=== PATIENT | female | born 1945 | race Caucasian/White ===

== ENCOUNTER 2018-05-31 19:55 | Emergency (ER) | payer MEDICARE, OTHER ==
[~2018-05-31] VITALS: Ht 157.5 cm; Wt 72.6 kg
[2018-05-31 20:10] VITALS: BP 173/74
[2018-05-31] MEDS ORDERED: Simethicone 80mg tab ORAL ONE (20:30)
[2018-05-31] MEDS ORDERED: Dicyclomine HCl 10mg/5ml oral soln ORAL ONE (20:30)
[2018-05-31] MEDS ORDERED: Lidocaine 2% Visc 15ml soln ORAL ONE (20:30)
[2018-05-31] MEDS ORDERED: Mylanta II UD 30ml ORAL ONE (20:30)
[2018-05-31 20:49] LABS: APPEARANCE,URINE CLEAR; BILIRUBIN, URINE NEGATIVE (NEGATIVE); COLOR,URINE PALE YELLOW; GLUCOSE, URINE (UA) NEGATIVE (NEGATIVE); KETONES,URINE NEGATIVE (NEGATIVE); LEUKOCYTE ESTERASE ,URINE NEGATIVE (NEGATIVE); NITRITE,URINE NEGATIVE (NEGATIVE); PH,URINE 7 (4.5-8.0); PROTEIN,URINE NEGATIVE (NEGATIVE); UROBILINOGEN,URINE NORMAL MG/DL (0.0-1.0)
[2018-05-31 20:49] LABS: EOSINOPHILS % (AUTO) 4.1 % (0.0-3.0); HEMATOCRIT 31.2 % (37.0-47.0); HEMOGLOBIN 9.9 G/DL (12.0-16.0); LYMPHOCYTES % (AUTO) 36.6 % (20.0-45.0); MEAN CORPUSCULAR VOLUME 79 FL (80-99); MONOCYTES % (AUTO) 10.6 % (1.0-10.0); NEUTROPHILS % (AUTO) 46.7 % (45.0-75.0); PLATELET COUNT 307 K/UL (150-450); RED BLOOD COUNT 3.96 M/UL (4.20-5.40); RED CELL DISTRIBUTION WIDTH 15.7 % (11.6-14.8); WHITE BLOOD COUNT 7.4 K/UL (4.8-10.8)
--- NOTE | 2018-05-31 21:03 | Emergency Room Report ---
History of Present Illness General Chief Complaint: Abdominal Pain Source: Patient (Jordi Gonzáles MD) Present Illness HPI 72-year-old female presents ED complaining of abdominal pain. Started earlier today. Cramping, 8 out of 10, lower abdomen, nonradiating. Noted a large bowel movement earlier. Denies any nausea or vomiting. Denies any diarrhea. States she feels bloated and distended. States she has history of gastritis in the past but states pain is worse today. No other aggravating relieving factors. Denies any other associated symptoms (Jordi Gonzáles MD) Allergies: Coded Allergies: No Known Allergies (Unverified , 05/31/18) Patient History Past Medical History: GERD Past Surgical History: none Pertinent Family History: none Social History: Denies: smoking, alcohol use, drug use Last Menstrual Period: n/a Now: No Immunizations: UTD Reviewed Nursing Documentation: PMH: Agreed; PSxH: Agreed (Jordi Gonzáles MD) Nursing Documentation-PMH Past Medical History: No History, Except For Hx Hypertension: Yes Hx Gastrointestinal Problems: Yes - gastritis (Jordi Gonzáles MD) Review of Systems All Other Systems: negative except mentioned in HPI (Jordi Gonzáles MD) Physical Exam Vital Signs Date Time Temp Pulse Resp B/P (MAP) Pulse Ox O2 Delivery O2 Flow Rate FiO2 05/31/18 19:59 98.2 75 16 176/81 98 Room Air 98.2 Sp02 EP Interpretation: reviewed, normal General Appearance: no apparent distress, alert, GCS 15, non-toxic Head: normocephalic, atraumatic Eyes: bilateral eye normal inspection, bilateral eye PERRL ENT: hearing grossly normal, normal pharynx, no angioedema, normal voice Neck: full range of motion, supple/symm/no masses Respiratory: chest non-tender, lungs clear, normal breath sounds, speaking full sentences Cardiovascular #1: regular rate, rhythm, no edema Cardiovascular #2: 2+ carotid (R), 2+ carotid (L), 2+ radial (R), 2+ radial (L) , 2+ dorsalis pedis (R), 2+ dorsalis pedis (L) Gastrointestinal: normal bowel sounds, soft, no guarding, no rebound, distended , tenderness - suprapubic Rectal: deferred Genitourinary: normal inspection, no CVA tenderness Musculoskeletal: back normal, gait/station normal, normal range of motion, non- tender Neurologic: alert, oriented x3, responsive, motor strength/tone normal, sensory intact, speech normal Psychiatric: judgement/insight normal, memory normal, mood/affect normal, no suicidal/homicidal ideation Reflexes: 3+ bicep (R), 3+ bicep (L), 3+ tricep (R), 3+ tricep (L), 3+ knee (R) , 3+ knee (L) Skin: normal color, no rash, warm/dry, well hydrated Lymphatic: no adenopathy (Jordi Gonzáles MD) Medical Decision Making Diagnostic Impression: Primary Impression: Abdominal pain Qualified Codes: R10.32 - Left lower quadrant pain Additional Impression: Anemia Qualified Codes: D64.9 - Anemia, unspecified ER Course Patient signout to me. She presents with left lower quadrant abdominal pain that's been ongoing off for about a year. Worse tonight. Labs unremarkable. CT scan showed degenerative changes. She has diverticulosis but no evidence of acute diverticulitis. She felt better now. She is anemic on blood work. She has not had a colonoscopy over 10 years. She may benefit from a screening colonoscopy. No evidence of an acute abdomen. No evidence of infection. We' ll discharge home. (LOPEZ CORDERO M.D.) CT/MRI/US Diagnostic Results CT/MRI/US Diagnostic Results : Imaging Test Ordered: CT abdomen and pelvis Impression Read by radiologist. Negative. (LOPEZ CORDERO M.D.) Last Vital Signs Date Time Temp Pulse Resp B/P (MAP) Pulse Ox O2 Delivery O2 Flow Rate FiO2 05/31/18 20:10 98.3 73 19 173/74 99 Room Air 98.3 (Jordi Gonzáles MD) Status: improved (LOPEZ CORDERO M.D.) Disposition: HOME, SELF-CARE Condition: Stable Scripts Acetaminophen With Codeine (T#3) (TYLENOL #3 TAB*) Y Tab 1 TAB ORAL Q8H PRN for For Pain, #20 TAB Prov: LOPEZ CORDERO M.D. 05/31/18 Referrals: NOT CHOSEN IPA/,REFERRING (PCP) Patient Instructions: Abdominal Pain, Adult Additional Instructions: Follow-up your doctor in 7 days. You may benefit from a screening colonoscopy since you have had one in over 10 years. Return if symptom worsen. Jordi Gonzáles MD May 31, 2018 21:03 LOPEZ CORDERO M.D. May 31, 2018 22:09
[2018-05-31 21:04] LABS: ANION GAP 9 mmol/L (5-15); BLOOD UREA NITROGEN 11 mg/dL (7-18); CALCIUM 8.7 MG/DL (8.5-10.1); CARBON DIOXIDE 26 MMOL/L (21-32); CHLORIDE 107 MMOL/L (98-107); POTASSIUM 4.3 MMOL/L (3.5-5.1); SODIUM 142 MMOL/L (136-145)
[2018-05-31 21:09] LABS: ALANINE AMINOTRANSFERASE 21 U/L (12-78); ALBUMIN 3.1 G/DL (3.4-5.0); ALBUMIN/GLOBULIN RATIO 0.7 (1.0-2.7); ALKALINE PHOSPHATASE 81 U/L (46-116); ASPARTATE AMINO TRANSFERASE 28 U/L (15-37); BILIRUBIN,TOTAL 0.4 MG/DL (0.2-1.0)
[2018-05-31] MEDS ORDERED: ACETAMINOPHEN-1 EAC1 ORAL (22:08)
[2018-05-31 22:21] VITALS: BP 154/68
[2018-05-31 22:22] VITALS: BP 154/68
--- NOTE | 2018-06-01 09:46 | Diagnostic Imaging Report ---
Indication: Abdominal pain Technique: Spiral acquisitions obtained through the abdomen and pelvis. No oral contrast utilized, per emergency room physician request No IV contrast utilized, per referring physician request.. Multiplanar reconstructions were generated. Total dose length product 907.51 mGycm. CTDIvol(s) 18.16 mGy. Dose reduction achieved using automated exposure control Comparison: None Findings: The appendix is not definitely demonstrated. No findings to suggest acute appendicitis are evident, however. There are multiple colonic diverticula. No evidence of diverticulitis. No free or loculated intraperitoneal air or fluid. No small bowel distention. Distal esophagus, stomach, duodenum are unremarkable. Lack of IV contrast limits assessment of the solid organs. The liver, gallbladder, bile ducts, pancreas are unremarkable. Spleen demonstrates numerous small calcifications. The adrenals are unremarkable. The right kidney demonstrates a 3.3 cm lower pole cyst. Left kidney demonstrates a tiny punctate nonobstructive calculus and a lower pole collecting system. No renal or ureteral calculi, hydronephrosis, or hydroureter. The bladder is unremarkable. The uterus is absent, presumably postsurgically. No pelvic mass or adenopathy. No retroperitoneal or mesenteric mass or adenopathy. The bones demonstrate mild degenerative lumbar spondylosis changes. The lung bases demonstrate bilateral parenchymal calcifications Impression: No acute abnormality Colonic diverticulosis. No evidence of diverticulitis Evidence of old granulomatous disease in the lungs and spleen 1 mm nonobstructive left lower pole intrarenal calyceal calculus Other findings as noted, including degenerative spondylosis, evidence of prior hysterectomy, right renal cyst This agrees with the preliminary interpretation provided overnight by [employer] teleradiology service. The CT scanner at [facility] is accredited by the [employer] and the scans are performed using protocols designed to limit radiation exposure to as low as reasonably achievable to attain images of sufficient resolution adequate for diagnostic evaluation.
== END 2018-05-31 22:40 | disposition home or self-care (01) ==
LOC: EMR 20:38
DX: R10.32 Left lower quadrant pain (principal); D64.9 Anemia, unspecified; I10 Essential (primary) hypertension; K57.30 Diverticulosis of large intestine without perforation or abscess without bleeding; N20.0 Calculus of kidney
CPT/HCPCS: 36415; 74176; 80053; 81003; 83690; 85025; 96361; 96374; 99284; S0028

== ENCOUNTER 2019-12-14 16:41 | Emergency (ER) | payer MEDICARE, OTHER ==
[~2019-12-14] VITALS: Ht 162.6 cm; Wt 76.7 kg
[~2019-12-14 16:41] MED LIST: ACETAMINOPHEN-1 EAC1 ORAL
[2019-12-14 17:10] VITALS: BP 170/90
--- NOTE | 2019-12-14 17:10 | NUR ---
ED Nurse Note: PT walked in to ED for c/o low abdominal sharp abdominal pain x multiple weeks. Pt verbalized feeling of fllness. denies N/V or fever or chills. PT also reports urinary freuency and urgency with dysuria
--- NOTE | 2019-12-14 17:36 | NUR ---
ED Nurse Note: blood sample sent down to lab
[2019-12-14 17:43] LABS: BASOPHILS % (AUTO) 0.7 % (0.0-2.0); EOSINOPHILS % (AUTO) 0.3 % (0.0-3.0); HEMATOCRIT 41.9 % (37.0-47.0); HEMOGLOBIN 12.9 G/DL (12.0-16.0); LYMPHOCYTES % (AUTO) 19.1 % (20.0-45.0); MEAN CORPUSCULAR VOLUME 96 FL (80-99); MONOCYTES % (AUTO) 9.7 % (1.0-10.0); NEUTROPHILS % (AUTO) 70.1 % (45.0-75.0); PLATELET COUNT 327 K/UL (150-450); RED BLOOD COUNT 4.39 M/UL (4.20-5.40); RED CELL DISTRIBUTION WIDTH 15.9 % (11.6-14.8); WHITE BLOOD COUNT 13.2 K/UL (4.8-10.8)
--- NOTE | 2019-12-14 17:43 | NUR ---
ED Nurse Note: Urine sent down to lab
[2019-12-14 17:58] LABS: ANION GAP 8 mmol/L (5-15); BLOOD UREA NITROGEN 18 mg/dL (7-18); CARBON DIOXIDE 28 MMOL/L (21-32); CHLORIDE 104 MMOL/L (98-107); CREATININE 0.7 MG/DL (0.55-1.30); SODIUM 140 MMOL/L (136-145)
[2019-12-14] MEDS ORDERED: Omnipaque-300 100ml vial INJ PRN (18:00)
[2019-12-14 18:02] LABS: ALANINE AMINOTRANSFERASE 30 U/L (12-78); ALBUMIN 3.7 G/DL (3.4-5.0); ALBUMIN/GLOBULIN RATIO 0.9 (1.0-2.7); ALKALINE PHOSPHATASE 107 U/L (46-116); ASPARTATE AMINO TRANSFERASE 17 U/L (15-37); BILIRUBIN,TOTAL 0.2 MG/DL (0.2-1.0)
[2019-12-14 18:03] LABS: APPEARANCE,URINE CLEAR; BILIRUBIN, URINE NEGATIVE (NEGATIVE); COLOR,URINE PALE YELLOW; GLUCOSE, URINE (UA) NEGATIVE (NEGATIVE); KETONES,URINE NEGATIVE (NEGATIVE); LEUKOCYTE ESTERASE ,URINE 1+ (NEGATIVE); NITRITE,URINE NEGATIVE (NEGATIVE); PH,URINE 5 (4.5-8.0); PROTEIN,URINE 1+ (NEGATIVE); UROBILINOGEN,URINE NORMAL MG/DL (0.0-1.0)
--- NOTE | 2019-12-14 18:10 | NUR ---
ED Nurse Note: went to ct
--- NOTE | 2019-12-14 18:29 | NUR ---
ED Nurse Note: back from ct
--- NOTE | 2019-12-14 18:49 | Diagnostic Imaging Report ---
Clinical Indication: Abdominal pain Technique: No oral contrast utilized, per emergency room physician request IV administration nonionic contrast. Venous phase spiral acquisition obtained through the abdomen and pelvis. Multiplanar reconstructions were generated. Total dose length product 1234 mGycm. CTDIvol(s) 22 mGy. Dose reduction achieved using automated exposure control Comparison: 05/31/2018 Findings: There are colonic diverticula. No evidence of diverticulitis. The appendix is not definitely visualized, but no findings to suggest acute appendicitis are evident. No small bowel distention. No free or loculated intraperitoneal gas or fluid. Distal esophagus, stomach, duodenum are unremarkable. The liver, gallbladder, bile ducts, pancreas are unremarkable. The spleen demonstrates several calcifications. The adrenals are unremarkable. Both kidneys demonstrate subcentimeter low-attenuation lesions which are too small to characterize. There is a 3.7 cm cyst coming off of the lower pole of the right kidney. There is mild hydronephrosis on the right, but the right kidney opacify symmetrically.. No ureterectasis or definite downstream obstructing lesion is demonstrated, however. No renal or ureteral calculi, or hydroureter. Degenerative spondylosis, prior hysterectomy previously reported left lower pole calyceal calculus is not currently evident. The bladder is unremarkable. The uterus is absent. The included lung bases demonstrate posterior dependent atelectatic changes. A calcified granuloma is demonstrated in the left lung base. The bones demonstrate degenerative spondylosis changes. Impression: No acute abnormality Colonic diverticulosis. 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 Subcentimeter low-attenuation renal lesions, too small to characterize, most likely benign simple cysts. No further follow-up necessary Incidental findings as noted, including evidence of old granulomatous disease within the left lung and spleen, degenerative basilar pulmonary atelectatic changes, prior hysterectomy This agrees with the preliminary interpretation provided overnight by [employer] teleradiology service. The CT scanner at [facility] is accredited by the [employer] and the scans are performed using protocols designed to limit radiation exposure to as low as reasonably achievable to attain images of sufficient resolution adequate for diagnostic evaluation.
--- NOTE | 2019-12-14 19:13 | Emergency Room Report ---
History of Present Illness General Chief Complaint: Abdominal Pain Source: Patient Present Illness HPI 74-year-old female with no significant past medical history here complaining of several weeks of feeling bloated and 3 days of left lower quadrant epigastric pain rated 10 out of 10. Complains of being gassy, constipated, has been making bowel movements and small portions, denies any blood in stool. Denies nausea vomiting. Denies recent travel, fever and chills, chest pain shortness of breath. Reports that she had a colonoscopy 15 however repeated colonoscopy since. Denies headache and dizziness, denies blurry vision. Also complains of 1week urinary frequency and urgency. Appears to be stable with stable vital signs. Allergies: Coded Allergies: No Known Allergies (Unverified , 05/31/18) Patient History Past Medical History: see triage record Past Surgical History: none Pertinent Family History: none Now: No Immunizations: UTD Reviewed Nursing Documentation: PMH: Agreed; PSxH: Agreed Nursing Documentation-PMH Hx Cardiac Problems: No - Arthritis Hx Hypertension: No Hx Pacemaker: No Hx Asthma: No Hx COPD: No Hx Diabetes: No Hx Cancer: No Hx Gastrointestinal Problems: Yes - gastritis Hx Dialysis: No Hx Neurological Problems: No Hx Cerebrovascular Accident: No Hx Seizures: No Review of Systems All Other Systems: negative except mentioned in HPI Physical Exam Vital Signs Date Time Temp Pulse Resp B/P (MAP) Pulse Ox O2 Delivery O2 Flow Rate FiO2 12/14/19 17:04 98.2 64 18 175/84 (114) 99 Room Air Sp02 EP Interpretation: reviewed, normal General Appearance: no apparent distress, alert, GCS 15, non-toxic Head: normocephalic, atraumatic Eyes: bilateral eye normal inspection, bilateral eye PERRL ENT: hearing grossly normal, normal pharynx, no angioedema, normal voice Neck: full range of motion, supple, thyroid normal, no meningismus, no bony tend, supple/symm/no masses Respiratory: chest non-tender, lungs clear, normal breath sounds, no rhonchi, no respiratory distress, no retraction, no wheezing, speaking full sentences Cardiovascular #1: regular rate, rhythm, no edema, no murmur Gastrointestinal: normal bowel sounds, non tender, soft, no mass, no organomegaly, no peritonitis, no bruit, non-distended, no guarding, no hernia, no pulsatile mass Rectal: deferred Genitourinary: no CVA tenderness Musculoskeletal: back normal Neurologic: alert, motor strength/tone normal, oriented x3, sensory intact, responsive, speech normal Psychiatric: judgement/insight normal, memory normal, mood/affect normal, no suicidal/homicidal ideation Skin: no rash Lymphatic: no adenopathy Medical Decision Making PA Attestation All my diagnosis and treatment plans were reviewed ad discussed with my supervising physician Dr. Gonzáles Diagnostic Impression: Primary Impression: Diverticulosis Additional Impressions: UTI (urinary tract infection) Constipation ASVD (arteriosclerotic vascular disease) Renal cyst ER Course 74-year-old female with no significant past medical history here complaining of several weeks of feeling bloated and 3 days of left lower quadrant epigastric pain rated 10 out of 10. Complains of being gassy, constipated, has been making bowel movements and small portions, denies any blood in stool. Denies nausea vomiting. Denies recent travel, fever and chills, chest pain shortness of breath. Reports that she had a colonoscopy 15 however repeated colonoscopy since. Denies headache and dizziness, denies blurry vision. Also complains of 1week urinary frequency and urgency. Appears to be stable with stable vital signs. Ddx considered but are not limited to: appendicitis, cholecystis, gastritis, gastroenteritis, UTI, pyelonephritis, SBO, diverticulitis, influenza with GI manifestation, [place], diverticulitis, diverticulosis, UTI Vital signs: are WNL, pt. is afebrile H&PE are most consistent with diverticulosis without diverticulitis, UTI, constipation, incidental finding of ASVD and renal cyst that patient has to address her primary care provider, ORDERS: abdominal CT, CBC, CMP, lipase, UA, tox screen, EKG, troponin, Colace, Macrobid ED INTERVENTIONS: None required at this time. DISCHARGE: At this time pt. is stable for d/c to home. Will provide printed patient care instructions, and any necessary prescriptions. Care plan and follow up instructions have been discussed with the patient prior to discharge. Patient to follow-up primary care provider, also special service representative, avoid eating red meat as patient reports that she eats that in large quantity every day. Increase fiber intake and oral hydration. If bleeding rectally return to the emergency room. If worsening symptoms return to the emergency room. EKG Diagnostic Results Rate: normal Rhythm: NSR ST Segments: no acute changes Other Impression No acute ST changes CT/MRI/US Diagnostic Results CT/MRI/US Diagnostic Results : Imaging Test Ordered: CT abdomen pelvis with contrast Impression Impression - Prominent right colonic stool burden could be a cause for pain. -Otherwise no acute abnormality definitively identified to account for patient presentation. - Old granulomatous disease in the chest. - Old granulomatous disease in the spleen. - Benign right renal cyst. -ASVD. -Hysterectomy. -Colonic diverticulosis without acute diverticulitis. Last Vital Signs Date Time Temp Pulse Resp B/P (MAP) Pulse Ox O2 Delivery O2 Flow Rate FiO2 12/14/19 17:10 70 18 Room Air 12/14/19 17:10 98.2 170/90 99 Disposition: HOME, SELF-CARE Condition: Stable Scripts Nitrofurantoin Monohyd/M-Cryst* (MACROBID 100 MG*) 100 Mg Capsule 100 MG ORAL EVERY 12 HOURS for 7 Days, #14 CAP Prov: Luis Yusuf 12/14/19 Docusate Sodium* (COLACE*) 100 Mg Capsule 100 MG ORAL THREE TIMES A DAY, #14 CAP Prov: Luis Yusuf 12/14/19 Referrals: NON PHYSICIAN (PCP) Patient Instructions: Abdominal Pain, Adult, Constipation, Adult, Diverticulosis Additional Instructions: Take medication as directed, follow-up with your primary care provider, increase oral hydration, follow-up with your primary care provider, if worsening symptoms return to the emergency room Luis Yusuf Dec 14, 2019 19:13
--- NOTE | 2019-12-14 19:21 | NUR ---
ED Nurse Note: Report given to Sima Toledo RN Endorsed plan of care.
[2019-12-14] MEDS ORDERED: COLACE100 MG ORAL (19:26)
[2019-12-14] MEDS ORDERED: NITROFURANTOIN100 M2 ORAL (19:26)
[2019-12-14 19:38] VITALS: BP 156/84
--- NOTE | 2019-12-14 19:38 | NUR ---
ER DISCHARGE NOTE: Patient is cleared to be discharged per ERMD, pt is aox4, on room air, with stable vital signs. pt was given dc and prescription instructions, pt was able to verbalize understanding, pt id band and iv site removed without complications. pt is able to ambulate with steady gait. pt took all belongings.
== END 2019-12-14 19:35 | disposition home or self-care (01) ==
LOC: EMR 17:25
DX: K57.90 Diverticulosis of intestine, part unspecified, without perforation or abscess without bleeding (principal); N39.0 Urinary tract infection, site not specified; K59.00 Constipation, unspecified; I70.90 Unspecified atherosclerosis; N28.1 Cyst of kidney, acquired; Z90.710 Acquired absence of both cervix and uterus
CPT/HCPCS: 36415; 74177; 80053; 81003; 83690; 84484; 85025; 87086; 87181; 93005; 99284; Q9967

== ENCOUNTER 2020-01-18 11:53 | Emergency (ER) | payer MEDICARE ==
[~2020-01-18] VITALS: Ht 154.9 cm; Wt 68.9 kg
[~2020-01-18 11:53] MED LIST changes: +COLACE100 MG ORAL; +NITROFURANTOIN100 M2 ORAL
--- NOTE | 2020-01-18 12:02 | NUR ---
ED Nurse Note: Patient called, not in waiting room.
[2020-01-18 12:30] VITALS: BP 147/81
--- NOTE | 2020-01-18 12:30 | NUR ---
ED Nurse Note: Pt walked in from home c/o left lower abdominal pain since this morning with frequent urination. Denies n/v/fever/chills. Respirations even and unlabored on room air. Vitals stable as documented.
--- NOTE | 2020-01-18 12:36 | Emergency Room Report ---
History of Present Illness General Chief Complaint: Female Urogenital Problems Source: Patient Present Illness HPI 74-year-old female presents to the emergency department complaining of 5 out of 10 severity dysuria and urinary urgency x2 days. Patient reports history of diverticulitis. She reports she has severe pain and describes a pulling/ ripping sensation only when urinating. She denies hematuria. She denies blood in the stool or black tarry stools. Patient denies constipation or diarrhea. She reports nausea. Patient denies abdominal tenderness. She denies nausea, vomiting, fevers or chills. No other aggravating or relieving factors at this time. COVID-19 risk:Travel to affect: No Allergies: Coded Allergies: No Known Allergies (Unverified , 05/31/18) Patient History Past Medical History: see triage record Past Surgical History: none Pertinent Family History: none Now: No Reviewed Nursing Documentation: PMH: Agreed; PSxH: Agreed Nursing Documentation-PMH Past Medical History: No History, Except For Hx Cardiac Problems: No - Arthritis Hx Hypertension: No Hx Pacemaker: No Hx Asthma: No Hx COPD: No Hx Diabetes: No Hx Cancer: No Hx Gastrointestinal Problems: Yes - gastritis, diverticulitis, constipation Hx Dialysis: No Hx Neurological Problems: No Hx Cerebrovascular Accident: No Hx Seizures: No Review of Systems All Other Systems: negative except mentioned in HPI Physical Exam Vital Signs Date Time Temp Pulse Resp B/P (MAP) Pulse Ox O2 Delivery O2 Flow Rate FiO2 01/18/20 12:15 98.8 76 16 158/84 (108) 99 Room Air Sp02 EP Interpretation: reviewed, normal General Appearance: no apparent distress, alert, GCS 15, non-toxic Head: normocephalic, atraumatic Eyes: bilateral eye normal inspection, bilateral eye PERRL ENT: hearing grossly normal, normal voice Neck: full range of motion Respiratory: lungs clear, normal breath sounds, speaking full sentences Cardiovascular #1: regular rate, rhythm Gastrointestinal: normal bowel sounds, non tender, soft, non-distended, no guarding Genitourinary: normal inspection, no CVA tenderness Musculoskeletal: back normal, normal range of motion, gait/station normal, non- tender Neurologic: alert, motor strength/tone normal, oriented x3, sensory intact, responsive, speech normal Psychiatric: judgement/insight normal Skin: no rash Lymphatic: no adenopathy Medical Decision Making PA Attestation Dr. Lopez Is my supervising Physician whom patient management has been discussed with. Diagnostic Impression: Primary Impression: UTI (urinary tract infection) Qualified Codes: N30.01 - Acute cystitis with hematuria ER Course 74-year-old female presents to the emergency department complaining of 5 out of 10 severity dysuria and urinary urgency x2 days. Patient reports history of diverticulitis. She reports she has severe pain and describes a pulling/ ripping sensation only when urinating. She denies hematuria. She denies blood in the stool or black tarry stools. Patient denies constipation or diarrhea. She reports nausea. Patient denies abdominal tenderness. She denies nausea, vomiting, fevers or chills. No other aggravating or relieving factors at this time. Ddx considered but are not limited to UTi , Pyelo, STI, Stone, Cystitis Vital signs: are WNL, pt. is afebrile H&PE are most consistent with UTI ORDERS: - UA labs are attached - Elevated inflammatory markers in addition to presence of some bacteria. ED INTERVENTIONS: Pyridium PO DISCHARGE: At this time pt. is stable for d/c to home. Will provide printed patient care instructions, and any necessary prescriptions. Care plan and follow up instructions have been discussed with the patient prior to discharge. Labs Test 01/18/20 12:50 Urine Color Yellow Urine Appearance Clear Urine pH 5 (4.5-8.0) Urine Specific [place] 1.020 (1.005-1.035) Urine Protein 1+ (NEGATIVE) Urine Glucose (UA) Negative (NEGATIVE) Urine Ketones Negative (NEGATIVE) Urine Blood 4+ (NEGATIVE) Urine Nitrite Negative (NEGATIVE) Urine Bilirubin Negative (NEGATIVE) Urine Urobilinogen Normal MG/DL (0.0-1.0) Urine Leukocyte Esterase 3+ (NEGATIVE) Urine RBC 5-10 /HPF (0 - 2) Urine WBC 5-10 /HPF (0 - 2) Urine Squamous Epithelial Cells Few /LPF (NONE/OCC) Urine Bacteria Few /HPF (NONE) Urine Mucus Few /LPF (NONE/OCC) Last Vital Signs Date Time Temp Pulse Resp B/P (MAP) Pulse Ox O2 Delivery O2 Flow Rate FiO2 01/18/20 12:15 98.8 76 16 158/84 (108) 99 Room Air Disposition: HOME, SELF-CARE Condition: Stable Scripts Phenazopyridine Hcl* (PYRIDIUM*) 200 Mg Tablet 200 MG ORAL THREE TIMES A DAY, #9 TAB 0 Refills Prov: Judie Clay 01/18/20 Nitrofurantoin Monohyd/M-Cryst* (MACROBID 100 MG*) 100 Mg Capsule 100 MG ORAL EVERY 12 HOURS for 7 Days, #14 CAP Prov: Judie Clay 01/18/20 Referrals: [facility] [employer] [facility] [employer] Patient Instructions: Urinary Tract Infection Additional Instructions: Take medications as directed. Follow up with a Primary Care Provider in 3-5 days, even if your symptoms have resolved. --Please review list of primary care clinics, if you do not already have a primary care provider Return sooner to ED if new symptoms occur, or current symptoms become worse. - Please note that this Emergency Department Report was dictated using [employer] director assisted living technology software, occasionally this can lead to erroneous entry secondary to interpretation by the dictation equipment. Judie Clay Jan 18, 2020 12:36
--- NOTE | 2020-01-18 12:55 | NUR ---
ED Nurse Note: urine sent to lab
[2020-01-18] MEDS ORDERED: Phenazopyridine 200mg tab ORAL ONE (13:15)
[2020-01-18 13:24] LABS: APPEARANCE,URINE CLEAR; BILIRUBIN, URINE NEGATIVE (NEGATIVE); COLOR,URINE YELLOW; GLUCOSE, URINE (UA) NEGATIVE (NEGATIVE); KETONES,URINE NEGATIVE (NEGATIVE); LEUKOCYTE ESTERASE ,URINE 3+ (NEGATIVE); NITRITE,URINE NEGATIVE (NEGATIVE); PH,URINE 5 (4.5-8.0); PROTEIN,URINE 1+ (NEGATIVE); UROBILINOGEN,URINE NORMAL MG/DL (0.0-1.0)
[2020-01-18] MEDS ORDERED: PHENAZOPYRIDIN200 MG ORAL (13:36)
[2020-01-18] MEDS ORDERED: NITROFURANTOIN100 M2 ORAL (13:36)
[2020-01-18 13:40] VITALS: BP 151/84
--- NOTE | 2020-01-18 13:40 | NUR ---
ER DISCHARGE NOTE: Patient is cleared to be discharged per ERMD, pt is aox4, on room air, with stable vital signs as documented. pt was given dc and prescription instructions and was able to verbalize understanding, pt id band removed. pt is able to ambulate with steady gait. pt took all belongings.
== END 2020-01-18 14:00 | disposition home or self-care (01) ==
LOC: EMR 13:34
DX: N30.01 Acute cystitis with hematuria (principal); M19.90 Unspecified osteoarthritis, unspecified site; K57.90 Diverticulosis of intestine, part unspecified, without perforation or abscess without bleeding
CPT/HCPCS: 81003; 99282